=== PATIENT | female | born 1995 | race Caucasian/White ===

== ENCOUNTER 2021-02-01 12:35 | Emergency (ER) | payer OTHER ==
[~2021-02-01 12:35] MED LIST: AUGMENTIN250 MG PO; FLEXERIL10 MG PO; IBUPROFEN800 MG PO; JUNEL 1 MG-201 EACH PO; MOTRIN600 MG PO; NORCO 5-325 TA1 EACH PO
[2021-02-01 13:35] LABS: EOSINOPHIL 1.7 % (0-5); HCT 35.6 % (37.0-47.0); HGB 11.8 g/dl (12.5-16.0); LYMPHOCYTE 35.6 % (15-48); MCH 30.2 pg (25.0-31.0); MCHC 33.1 g/dL (32.0-36.0); MONOCYTE 9.2 % (0-12); NEUTROPHIL 52.2 % (41-80); NRBC 0; PLT 247 K/uL (150-400); RBC 3.91 M/uL (4.20-5.40); RDW 13.4 % (11.5-14.0)
[2021-02-01 13:50] LABS: BUN/CREAT RATIO (CALC) 16.7 RATIO; CREATININE 0.6 mg/dL (0.51-0.95)
== END 2021-02-01 15:01 | disposition home or self-care (01) ==
LOC: FER 12:35
PROVIDERS: Emergency Medicine
DX: N93.8 Other specified abnormal uterine and vaginal bleeding (principal); R10.2 Pelvic and perineal pain; F17.210 Nicotine dependence, cigarettes, uncomplicated
CPT/HCPCS: 36415; 80048; 85025; 99284